=== PATIENT | female | born 1980 | race African-American/Black ===

== ENCOUNTER 2023-01-11 06:16 | Emergency (ER) | payer MEDICAID ==
[~2023-01-11] VITALS: Ht 157.5 cm; Wt 73.0 kg
[2023-01-11 06:20] VITALS: BP 110/62
[2023-01-11] MEDS ORDERED: ONDANSETRON HCL 4MG/2ML INJ IV STA (06:39)
[2023-01-11 07:23] LABS: BASOPHILS % 0.3 % (0.0-2.0); HEMOGLOBIN. 12.5 g/dL (12.0-16.0); LYMPHOCYTES % 9.9 % (20.0-50.0); MEAN CORPUSCULAR HEMOGLOBIN 24.4 pg (28.0-32.0); MEAN CORPUSCULAR VOLUME 74.2 fL (81.0-99.0); MEAN PLATELET VOLUME 8.9 fl (7.4-10.4); MONOCYTES % 1.8 % (2.0-8.0); PLATELET 285 x1000/uL (130-400); RED BLOOD CELL COUNT 5.12 mill/uL (4.2-5.4); RED CELL DISTRIBUTION WIDTH 14.2 % (11.6-14.6)
[2023-01-11 07:29] LABS: PROTHROMBIN TIME 10.9 sec (9.6-11.0)
[2023-01-11 07:33] LABS: CHLORIDE 105 mEq/L (98-107)
[2023-01-11 07:46] LABS: HCG SCREEN NEGATIVE
[2023-01-11] MEDS ORDERED: ONDA4TAB50 PO (08:10)
[2023-01-11] MEDS ORDERED: TOPUD PO (08:10)
== END 2023-01-11 08:43 | disposition home or self-care (01) ==
LOC: ER 06:28
DX: K52.9 Noninfective gastroenteritis and colitis, unspecified (principal)
CPT/HCPCS: 36415; 80053; 84703; 85025; 99283